=== PATIENT | male | born 1990 | race Caucasian/White ===

== ENCOUNTER 2023-04-08 21:27 | Inpatient (IN) | payer MEDICAID ==
[~2023-04-08] VITALS: Ht 218.4 cm; Wt 87.1 kg
[2023-04-08 21:30] VITALS: O2SAT 99
[2023-04-08] MEDS ORDERED: ACETAMINOPHEN 325MG TABLET PO ONE (23:00)
[2023-04-08] MEDS ORDERED: BACITRACIN ZINC OINT UDPKT TOP ONE (23:00)
[2023-04-08] MEDS ORDERED: LIDOCAINE HCL/PF 1% 10 MG/ML 5ML VIAL INFIL ONE (23:00)
[2023-04-09] VITALS (50 sets, daily range): BP systolic 114–158; BP diastolic 70–103; PULSE 72–143; RESP 11–34; TEMP 97.5–100.3
[2023-04-09] MEDS ORDERED: NICARDIPINE 40MG/200ML PREMIX 200 ML IV STA (01:03)
[2023-04-09] MEDS ORDERED: LEVETIRACETAM 500MG PREMIX 100 ML IV ONE (01:15)
[2023-04-09] MEDS ORDERED: TETANUS, DIPHTHERIA, PERTUSSIS VAC/PF 0.5ML (>10YR OLD) IM ONE (01:30)
[2023-04-09 01:38] LABS: BASOPHILS % 0.2 % (0.0-2.0); EOSINOPHILS % 0.7 % (0.0-5.0); HEMATOCRIT. 44.1 % (42.0-52.0); HEMOGLOBIN. 15.1 g/dL (14.0-18.0); MEAN CORPUSCULAR HEMOGLOBIN 32.2 pg (28.0-32.0); MEAN CORPUSCULAR HGB CONC 34.2 g/dL (31.0-37.0); MEAN PLATELET VOLUME 7.5 fl (7.4-10.4); MONOCYTES % 8.4 % (2.0-8.0); NEUTROPHILS % 68.7 % (40.0-76.0); PLATELET 208 x1000/uL (130-400); RED BLOOD CELL COUNT 4.69 mill/uL (4.7-6.1); RED CELL DISTRIBUTION WIDTH 13.3 % (11.6-14.6); WHITE BLOOD COUNT 10.5 x1000/uL (4.5-11.0)
[2023-04-09 01:41] LABS: CHLORIDE 102 mEq/L (98-107); INDEX HEMOLYSI 2 (1-3); INDEX ICTERIC 1 (1-4); INDEX LIPEMIC 1 (1-3); POTASSIUM 3.7 mEq/L (3.5-5.1); SODIUM 136 mEq/L (136-145)
[2023-04-09 01:49] LABS: ALANINE AMINOTRANSFERASE 102 IU/L (13-61); ALBUMIN 4.2 g/dL (3.4-5.0); ASPARTATE AMINOTRANSFERASE 109 IU/L (15-37); BILIRUBIN TOTAL 0.6 mg/dL (0.1-1.0); CALCIUM 9.1 mg/dL (8.5-10.1); CARBON DIOXIDE 28 mEq/L (21-32); CREATININE 0.7 mg/dL (0.6-1.3); ETHANOL BLOOD < 10 mg/dL (<10); GLUCOSE 108 mg/dL (70-105); PROTEIN TOTAL 8.3 g/dL (6.0-8.3); UREA NITROGEN BLOOD 5 mg/dL (7-21)
[2023-04-09 01:52] LABS: INR 0.9; PARTIAL THROMBOPLASTIN TIME 27.3 sec (23.4-31.0); PROTHROMBIN TIME 10.1 sec (9.6-11.0)
[2023-04-09] MEDS ORDERED: NICARDIPINE 40MG/200ML PREMIX 200 ML IV PRN (05:45)
[2023-04-09] MEDS: DEXT 5%/LACTATED RINGERS 1,000 ML IV SCH (08:04)
[2023-04-09] MEDS: NICARDIPINE 100 MG in SODIUM CHLORIDE 0.9% 60 ML IV PRN (10:44)
[2023-04-09] MEDS ORDERED: MORPHINE SULFATE 2 MG/ML CPJ (NOT FOR IM USE) IV PRN (10:45)
[2023-04-09] MEDS ORDERED: MORPHINE SULFATE 4 MG/ML CPJ (NOT FOR IM USE) IV SCH (11:00)
[2023-04-09] MEDS ORDERED: ONDANSETRON HCL 4MG/2ML INJ IV PRN (11:00)
[2023-04-09] MEDS ORDERED: NALOXONE HCL 0.4MG/ML VIAL IV PRN (11:15)
[2023-04-09] MEDS ORDERED: LEVETIRACETAM 500 MG in SODIUM CHLORIDE 0.9% 100 ML IV SCH (12:00)
[2023-04-09] MEDS: LEVETIRACETAM 500MG PREMIX 100 ML IV SCH ×2 (13:25→20:48)
[2023-04-09] MEDS: PANTOPRAZOLE SODIUM 40 MG/VIAL IV SCH (13:25)
[2023-04-09] MEDS ORDERED: CLONIDINE 0.1MG TABLET PO PRN (14:00)
[2023-04-09] MEDS ORDERED: HYDRALAZINE 20MG/ML VIAL IV PRN (14:00)
[2023-04-09] MEDS: MORPHINE SULFATE 2 MG/ML CPJ (NOT FOR IM USE) IV PRN ×2 (15:09→20:49)
[2023-04-09] MEDS ORDERED: LORAZEPAM 2MG/ML CPJ IV ONE (17:45)
[2023-04-09] MEDS: HALOPERIDOL LACTATE 5MG/ML VIAL IM NR ×2 (18:40→19:00)
[2023-04-09] MEDS: DIPHENHYDRAMINE 50MG/ML VIAL IV NR ×2 (18:41→18:59)
[2023-04-09] MEDS ORDERED: LORAZEPAM 2MG/ML CPJ IV PRN (20:00)
[2023-04-09] MEDS: CHLORDIAZEPOXIDE 25MG CAPSULE PO SCH (21:06)
[2023-04-10] VITALS (27 sets, daily range): BP systolic 106–161; BP diastolic 65–106; PULSE 87–124; RESP 16–35; TEMP 98.9–99.3
[2023-04-10] MEDS: NICARDIPINE 100 MG in SODIUM CHLORIDE 0.9% 60 ML IV PRN (00:20)
[2023-04-10] MEDS: DEXT 5%/LACTATED RINGERS 1,000 ML IV SCH (00:23)
[2023-04-10] MEDS: CHLORDIAZEPOXIDE 25MG CAPSULE PO SCH (06:07)
[2023-04-10] MEDS ORDERED: AMLODIPINE 10MG TABLET PO SCH (09:00)
[2023-04-10] MEDS ORDERED: THIAMINE HCL 100 MG in SODIUM CHLORIDE 0.9% 49 ML IV SCH (09:00)
[2023-04-10] MEDS ORDERED: THIAMINE HCL 100 MG/1 ML 2ML VIAL IV SCH (09:00)
[2023-04-10] MEDS: LEVETIRACETAM 500MG PREMIX 100 ML IV SCH (09:37)
[2023-04-10] MEDS: PANTOPRAZOLE SODIUM 40 MG/VIAL IV SCH (09:37)
[2023-04-10] MEDS ORDERED: NICARDIPINE 100 MG in SODIUM CHLORIDE 0.9% 60 ML IV PRN (12:00)
== END 2023-04-10 12:00 | disposition left against medical advice (07) | DRG 952 ==
LOC: ER 21:27 → MICUSO 04-09 01:15 → EDBEDREQTM 04-09 01:17 → EDBEDREQ 04-09 01:17 → EDBEDREQSVC 04-09 01:17 → MICUSO 04-09 10:56
PROVIDERS: ADMIT Internal Medicine; ATTEND Internal Medicine
PROC: 0WQ2XZZ Repair Face, External Approach (ICD-10-PCS; principal; 2023-04-09)
PROC: 0CQ1XZZ Repair Lower Lip, External Approach (ICD-10-PCS; 2023-04-09)
PROC: 0CQ0XZZ Repair Upper Lip, External Approach (ICD-10-PCS; 2023-04-09)
DX: S06.6XAA Traumatic subarachnoid hemorrhage with loss of consciousness status unknown, initial encounter (principal); G92.8 Other toxic encephalopathy; S01.81XA Laceration without foreign body of other part of head, initial encounter; F10.20 Alcohol dependence, uncomplicated; Y09 Assault by unspecified means; R74.01 Elevation of levels of liver transaminase levels; X58.XXXA Exposure to other specified factors, initial encounter
CPT/HCPCS: 36415; 70486; 80053; 80320; 85025; 86850; 86900; 90715; 99291; C9113; J0360; J1200; J1630; J1953; J2270; J2405; J3411; J3490; J7050; J7121; G0480

== ENCOUNTER 2023-04-30 21:42 | Emergency (ER) | payer MEDICAID ==
[~2023-04-30] VITALS: Ht 185.4 cm; Wt 92.5 kg
[2023-04-30] MEDS ORDERED: LORAZEPAM 0.5MG TABLET PO ONE (22:00)
[2023-04-30 22:04] VITALS: BP 145/70; PULSE 89; RESP 16; TEMP 98.4; O2SAT 99
== END 2023-04-30 23:13 | disposition left against medical advice (07) ==
LOC: ER 21:42
DX: F41.9 Anxiety disorder, unspecified (principal); F12.10 Cannabis abuse, uncomplicated
CPT/HCPCS: 99283